=== PATIENT | male | born 1995 | race Two or more races ===

== ENCOUNTER 2018-04-03 13:10 | Emergency (ER) | payer OTHER ==
[2018-04-03 13:23] VITALS: BP 119/56
[2018-04-03] MEDS ORDERED: HYDROCODONE/ACETAMINOPHEN 5-325 MG TABLET PO ONE (15:00)
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
== END 2018-04-03 15:45 | disposition left against medical advice (07) ==
LOC: ER 13:10
DX: M25.551 Pain in right hip (principal); M25.511 Pain in right shoulder; M54.9 Dorsalgia, unspecified; M54.2 Cervicalgia; V49.40XA Driver injured in collision with unspecified motor vehicles in traffic accident, initial encounter; F17.200 Nicotine dependence, unspecified, uncomplicated; Z53.29 Procedure and treatment not carried out because of patient's decision for other reasons
CPT/HCPCS: 99283